=== PATIENT | male | born 1950 | race Caucasian/White ===

== ENCOUNTER → 2024-04-11 08:27 | Outpatient (REF) | payer OTHER, SELFPAY | LOC: HWRAD 08:27 | PROVIDERS: ATTENDING PHYSICIAN Specialist; FAMILY PHYSICIAN Family Medicine | DX: Z80.0 Family history of malignant neoplasm of digestive organs (principal) | CPT/HCPCS: 74261 ==

== ENCOUNTER → 2024-07-30 07:23 | Outpatient (REF) | payer OTHER, SELFPAY | LOC: PAVMRI 07:23 | PROVIDERS: ATTENDING PHYSICIAN Student in an Organized Health Care Education/Training Program; FAMILY PHYSICIAN Family Medicine | DX: G62.9 Polyneuropathy, unspecified (principal); M62.81 Muscle weakness (generalized) | CPT/HCPCS: 72141 ==

== ENCOUNTER 2025-01-16 06:03 | Day surgery (SDC) | payer OTHER, SELFPAY ==
[2024-12-23 14:09] VITALS: BMI 21.9
[2025-01-16] VITALS (9 sets, daily range): BP systolic 129–153; BP diastolic 76–95; BMI 21.9
[2025-01-16] MEDS: NORMOSOL-R/PLASMALYTE-A 1000 IV (11:44)
[2025-01-16] MEDS: TYLENOL 1000 MG PO (11:44)
--- NOTE | 2025-01-16 13:40 | HP.FOC2 ---
Focused History & Physical
Chief Complaint
HPI:
Chief Complaint: Right inguinal hernia
HPI / Indication for Planned Procedure: Patient is a 74-year-old male previously known to myself status post laparoscopic left inguinal hernia repair in 2017 from which he has recovered well. He has since developed a visible swelling and protrusion
in the right inguinal region. Physical examination confirmed the presence of a right inguinal hernia I reviewed with the patient treatment options and he wished to pursue operative correction. We discussed various operative approaches to repair
and have elected to proceed with a robotic assisted laparoscopic right inguinal hernia pair with mesh.
Relevant Past Medical History: Other (Hypertension, hypercholesterolemia, right shoulder chronic bursitis and neuropathy)
Relevant Social History: Negative
Relevant Family History: Negative
Relevant Past Surgical History: Positive for (Right shoulder surgery, appendectomy, left inguinal hernia repair, left knee scope)
Review of Systems
Review of Pertinent Systems: All Systems Negative
Medication
See Medication form for detailed medications: Yes
Medication List (including Herbals & OTC):
rosuvastatin 5 mg tablet 5 mg PO HS 06/08/19
ascorbic acid (vitamin C) 500 mg tablet (Vitamin C) 500 mg PO DAILY 01/09/25
multivitamin 1 tab PO DAILY 01/09/25
ramipril 10 mg capsule 10 mg PO HS 01/09/25
Allergies and Reactions
Patient has Allergies: Yes
Noted Allergies and Reactions:
Allergy/AdvReac Type Severity Reaction Status Date / Time
Penicillins Allergy Rash Verified 01/16/25 11:34
Pertinent Physical Exam
All Other Systems: Negative
Head/Neck: Normal
Lungs: Normal
Heart: Normal
Abdomen: Other (Reducible right inguinal hernia)
Extremities: Normal
Neurological: Normal
Diagnosis / Assessment
74-year-old male presenting for scheduled operative correction symptomatic right inguinal hernia
Plan / Procedure
Robotic assisted laparoscopic repair right inguinal hernia with mesh
Anesthesia/Sedation to be done by Anesthesia Provider: Yes
--- NOTE | 2025-01-16 13:42 | W.SUR.PREOP ---
Pre-Operative Surgical Note
-
I have examined this patient prior to the performance of the scheduled procedure.
The patient's condition is unchanged from the time of the current History and
Physical and the patient is able to undergo the scheduled procedure.
--- NOTE | 2025-01-16 15:48 | W.IMMPOSTOP ---
Addendum entered and electronically signed by Tereso Avery MD 01/16/25 16:40:
#[id number]
Original Note:
Surgical Immed Post Op Note
-
Primary Surgeon: Tereso Avery MD
Assisting Surgeon: None
Pre-op Diagnosis: Right inguinal hernia
Post-op Diagnosis: Right inguinal hernia, direct
Procedure Performed: Robotic assisted laparoscopic repair right inguinal hernia with mesh; 3D max large mid weight
Anesthesia Type: GETA +0.25% Marcaine
Specimen / Cultures: None
Estimated Blood Loss: 6 mL
Complications: None immediate
Operative Findings: Previous left inguinal herniorrhaphy well and intact. No peritoneal adhesions. Right direct inguinal hernia identified and repaired. Some omental and cecal adhesions released to create peritoneal flap. 3D max large mid weight
mesh repair secured to Jesse's ligament with 2-0 Vicryl stitch x 2. Peritoneal flap closed with 2-0 Monocryl STRATAFIX spiral.
Patient's updated postoperatively via phone call which went to voicemail. Left message.
== END 2025-01-16 17:55 | disposition home or self-care (01) ==
LOC: SDS 06:03
PROVIDERS: ATTENDING PHYSICIAN Surgery; FAMILY PHYSICIAN Family Medicine
DX: K40.90 Unilateral inguinal hernia, without obstruction or gangrene, not specified as recurrent (principal)
CPT/HCPCS: 49650; 36415; 93005; C1781